=== PATIENT | male | born 1975 | race African-American/Black ===

== ENCOUNTER 2021-05-31 10:44 | Observation (INO) | payer OTHER ==
--- NOTE | 2021-05-31 10:45 | NUR ---
TO ROOM FOR TRIAGE BY EMS. [facility] STAFF AT BEDSIDE
[2021-05-31] MEDS ORDERED: KEPPRA1000 MG PO (11:06)
--- NOTE | 2021-05-31 11:42 | NUR ---
PATIENT RESTING, KEPPRA INFUSING TO LEFT AC WTHOUT DIFFICULTY. CONTINUING TO MONITOR.
[2021-05-31 11:52] LABS: HEMATOCRIT 41.7 % (39.0-50.0); HEMOGLOBIN 14.3 g/dl (14.0-18.0); IMMATURE GRANULOCYTES 0.1 % (0.0-5.0); MEAN CELL VOLUME 84.8 fL CALC (80.0-100.0); MEAN CORPUSCULAR HGB 29.1 pG CALC (26.0-32.0); MEAN CORPUSCULAR HGB CONC 34.3 g/dL CAL (32.0-36.0); NEUT# 6.21 thou/uL (1.82-7.42); RED BLOOD COUNT 4.92 mill/uL (4.70-6.10); RED CELL DISTRI WIDTH 12.7 % (11.5-15.5)
[2021-05-31 12:23] LABS: ALBUMIN 4.6 g/dL (3.2-5.0); ALKALINE PHOSPHATASE 47 u/l (38-126); ANION GAP 14 (6-22 (CALC)); BILIRUBIN, TOTAL 0.7 mg/dL (0.0-1.4); BUN 11 mg/dL (9-20); BUN/CREATININE RATIO 12 (12-20 (CALC)); CARBON DIOXIDE 25 mmol/l (22-30); CHLORIDE 105 mmol/l (95-108); ETHYL ALCOHOL 0 mg/dl (0-30); GFR > 60 ML/MIN (>=60 (CALC)); GFR FOR AFR.AMER. > 60 ML/MIN (>=60 (CALC)); POTASSIUM 3.7 mmol/l (3.5-5.1); SGOT/AST 43 u/l (17-59); SODIUM 140 mmol/l (137-146); TOTAL PROTEIN 7.9 g/dL (6.3-8.2)
--- NOTE | 2021-05-31 12:30 | NUR ---
PATIENT RESTING, NO DISTRESS. VSS.
--- NOTE | 2021-05-31 14:00 | NUR ---
AALIYAH ATTEMPT TO OBTAIN URINE SPECIMEN.
--- NOTE | 2021-05-31 16:00 | NUR ---
PATIENT RESTING, NO DISTRESS. CONTINUING TO MONITOR
--- NOTE | 2021-05-31 18:02 | NUR ---
URINAL PROVIDED AGAIN TO OBTAIN SPECIMEN.
--- NOTE | 2021-05-31 18:10 | NUR ---
DINNER TRAY PROVIDED FOR PATIENT AND GUARDS, ALL THANKFUL.
[2021-05-31 18:21] LABS: URINE BILIRUBIN - DIPSTICK NEGATIVE (NEGATIVE); URINE BLOOD DIPSTICK NEGATIVE (NEGATIVE); URINE COLOR YELLOW; URINE GLUCOSE - DIPSTICK NEGATIVE (NEGATIVE); URINE KETONE 15 mg/dL (NEGATIVE); URINE LEUK ESTERASE NEGATIVE (NEGATIVE); URINE PROTEIN - DIPSTICK NEGATIVE (NEG-TRACE); URINE SPECIFIC GRAVITY 1.025; URINE UROBILINOGEN - DIPSTICK 0.2 E.U./dL (0.2)
[2021-05-31 18:24] LABS: URINE NITRITE - DIPSTICK NEGATIVE (Negative)
--- NOTE | 2021-05-31 18:42 | NUR ---
O2 REMOVED BYPATIENT, VSS.
--- NOTE | 2021-05-31 20:06 | NUR ---
REPORT CALLED TO NURSE HAMEED
[2021-05-31 20:27] VITALS: BP 136/93
[2021-06-01 03:48] VITALS: BP 133/80
[2021-06-01 06:04] LABS: HEMATOCRIT 39.2 % (39.0-50.0); HEMOGLOBIN 13.3 g/dl (14.0-18.0); MEAN CELL VOLUME 84.5 fL CALC (80.0-100.0); MEAN CORPUSCULAR HGB 28.7 pG CALC (26.0-32.0); MEAN CORPUSCULAR HGB CONC 33.9 g/dL CAL (32.0-36.0); RED BLOOD COUNT 4.64 mill/uL (4.70-6.10); RED CELL DISTRI WIDTH 12.8 % (11.5-15.5)
[2021-06-01 06:27] LABS: ANION GAP 13 (6-22 (CALC)); BUN 9 mg/dL (9-20); BUN/CREATININE RATIO 11 (12-20 (CALC)); CARBON DIOXIDE 22 mmol/l (22-30); CHLORIDE 107 mmol/l (95-108); CREATININE 0.8 mg/dL (0.7-1.3); GFR > 60 ML/MIN (>=60 (CALC)); GFR FOR AFR.AMER. > 60 ML/MIN (>=60 (CALC)); MAGNESIUM 1.9 mg/dL (1.6-2.3); POTASSIUM 3.5 mmol/l (3.5-5.1); SODIUM 138 mmol/l (137-146)
[2021-06-01 07:55] VITALS: BP 130/80
--- NOTE | 2021-06-01 07:55 | NUR ---
PT ALERT AND ORIENTED. 2 GUARDS AT BEDSIDE. PT SHACKLED TO BED FRAME. VITALS AND ASSESSMENT DONE. S1 AND S2 HEARD UPON ASCULTATION. LUNG SOUNDS CLEAR. BOWELS ACTIVE IN ALL 4 QUADRANTS. SKIN WARM AND DRY. PEDAL PULSES BILATERALLY STRONG. IV PATENT AND HEALTHY. NO OTHER NEEDS AT THIS TIME. PT REPORTS NO PAIN AT THIS TIME. CALL LIGHT WITHIN REACH.
--- NOTE | 2021-06-01 11:32 | NUR ---
PT IN BED. GUARDS X2 AT BEDSIDE. CALL LIGHT WITHIN REACH.
--- NOTE | 2021-06-01 11:55 | NUR ---
Discharge instructions given. Patient verbalizes understanding of same. Dis[facility] in stable condition via [facility] with [facility]. All belongings sent with pt.
--- NOTE | 2021-06-01 11:55 | NUR ---
Discharge instructions given. Patient verbalizes understanding of same. Discharged in stable condition via [facility] to [facility] with staff. All belongings sent with pt.
== END 2021-06-01 12:00 | DRG 101 ==
LOC: ED 10:44 → ED-I 12:10 → ED 14:21 → MS2 14:22
PROVIDERS: Family Medicine; Nurse Practitioner; ADMIT Internal Medicine; ATTEND Internal Medicine
DX: G40.909 Epilepsy, unspecified, not intractable, without status epilepticus (principal); T42.6X6A Underdosing of other antiepileptic and sedative-hypnotic drugs, initial encounter; Z91.138 Patient's unintentional underdosing of medication regimen for other reason; B19.20 Unspecified viral hepatitis C without hepatic coma; Z20.822 Contact with and (suspected) exposure to COVID-19
CPT/HCPCS: G0378; J1650; J1953

== ENCOUNTER 2021-06-20 17:48 | Observation (INO) | payer OTHER ==
[~2021-06-20] VITALS: Ht 167.6 cm; Wt 67.0 kg
[~2021-06-20 17:48] MED LIST: KEPPRA1000 MG PO
--- NOTE | 2021-06-20 17:55 | NUR ---
PATIENT TO ROOM VIA EMS AND PHYSICIAN AT BEDSIDE FOR EVAL
[2021-06-20 18:27] LABS: HEMATOCRIT 40.1 % (39.0-50.0); HEMOGLOBIN 13.5 g/dl (14.0-18.0); MEAN CORPUSCULAR HGB 28.6 pG CALC (26.0-32.0); MEAN CORPUSCULAR HGB CONC 33.7 g/dL CAL (32.0-36.0); NEUT# 3.68 thou/uL (1.82-7.42); RED BLOOD COUNT 4.72 mill/uL (4.70-6.10); RED CELL DISTRI WIDTH 12.8 % (11.5-15.5)
--- NOTE | 2021-06-20 18:30 | NUR ---
STABLE ON MONITOR. OFFICERS AT BEDSIDE. HANDCUFFS IN PLACE.
[2021-06-20 18:39] LABS: ALBUMIN 4.8 g/dL (3.2-5.0); ALKALINE PHOSPHATASE 39 u/l (38-126); BUN 9 mg/dL (9-20); BUN/CREATININE RATIO 10 (12-20 (CALC)); CHLORIDE 104 mmol/l (95-108); CREATININE 0.9 mg/dL (0.7-1.3); ETHYL ALCOHOL 0 mg/dl (0-30); GFR > 60 ML/MIN (>=60 (CALC)); GFR FOR AFR.AMER. > 60 ML/MIN (>=60 (CALC)); SGOT/AST 22 u/l (17-59); SODIUM 140 mmol/l (137-146)
[2021-06-20 18:41] LABS: ANION GAP 11 (6-22 (CALC)); BILIRUBIN, TOTAL 0.3 mg/dL (0.0-1.4); CARBON DIOXIDE 29 mmol/l (22-30); POTASSIUM 4.3 mmol/l (3.5-5.1)
--- NOTE | 2021-06-20 20:00 | NUR ---
PT RETURNED FROM RADIOLOGY ACCOMPANED BY OFFICERS. SUCTION SET-UP TO BEDSIDE. PADDING PLACED ON SIDERAILS. NO SEIZURE-LIKE ACTIVITY NOTED. PT AWAKE AND ALERT
--- NOTE | 2021-06-20 20:30 | NUR ---
UNSUCCESSFUL ATTEMPTS AT IV START X2 TO RUE.
--- NOTE | 2021-06-20 22:00 | NUR ---
PT AND OFFICERS UPDATED ON PLAN FOR ADMISSION. SANDWICH, CRACKERS, AND WATER PROVIDED. ELECTRIC DOLLY OPERATOR NOTIFIED FOR HOT MEAL.
--- NOTE | 2021-06-21 01:00 | NUR ---
PT RESTING IN BED. OFFICERS AT BEDSIDE, CUFFS TO BLE AND RUE IN USE
--- NOTE | 2021-06-21 01:55 | NUR ---
REPORT GIVEN TO MARLA FARMER. PT STABLE FOR TRANSPORT TO FLOOR. ACCOMPANIED BY OFFICERS X2
[2021-06-21] MEDS ORDERED: DILANTIN100 MG PO (01:59)
--- NOTE | 2021-06-21 02:00 | NUR ---
Admission Note Report Given to: MARLA FARMER Transported by: Wheelchair X Stretcher Transported with: X Nurse Transporter X Patent IV O2 Acls Specialist Location: ICU X [facility]
[2021-06-21 02:18] VITALS: BP 131/82
--- NOTE | 2021-06-21 02:30 | NUR ---
PT ARRIVED TO UNIT ESCORTED BY ER STAFF AND 2 [facility] GUARDS VIA W/C. IV SITE TO RFA #22-NS @ 100ML/HR. I/O SITE TO LLE PLACED BY EMS. FLUIDS BEING GIVEN VIA THE RFA SITE. PT IS CUFFED TO BED BY SHACKLES TO LOWER EXTREMITIES AND LUE. CIRCULATION WNL IN LOWER AND UPPER EXTREMITIES. BREATHING IS EVEN AND UNLABORED. BED IS PADDED FOR SEIZURE SAFETY. SAFETY PRECAUTIONS IN PLACE, BED IN LOW POSITION AND CALL LIGHT WITHIN REACH. ADMISSION ASSESSMENTS COMPLETED, PLEASE SEE DOCUMENTATION. PT INDICATED HE DOES NOT NEED ASSISTANCE WITH ADL'S. GUARDS BEDSIDE TO ASSIST WITH REMOVAL OF CUFFS AND ESCORT TO THE TOILET. DENIES PAIN, NO COMPLAINTS VOICED AT THIS TIME. WILL CONTINUE TO MONITOR.
--- NOTE | 2021-06-21 04:03 | NUR ---
PT IN BED CONVERSING WITH GUARD, NO SEIZURE ACTIVITY NOTED. PT INDICATED HE DIDN'T GET HIS MEDS TONIGHT D/T HIM BEING LATE FOR MEDICATION LINE. WHEN PT ASKED IF THIS WAS OFTEN THAT HE MISSED HIS MEDS PT INDICATED IT USED TO BE VERY COMMON BUT OF LATE HE HAS BEEN COMPLIANT WITH HIS MEDICATIONS. NO COMPLAINTS VOICED AT THIS TIME. DENIES PAIN. SAFETY PRECAUTIONS REMAIN IN PLACE. WILL MONITOR
[2021-06-21 06:29] LABS: HEMATOCRIT 39.3 % (39.0-50.0); HEMOGLOBIN 13.2 g/dl (14.0-18.0); MEAN CELL VOLUME 86.6 fL CALC (80.0-100.0); MEAN CORPUSCULAR HGB 29.1 pG CALC (26.0-32.0); MEAN CORPUSCULAR HGB CONC 33.6 g/dL CAL (32.0-36.0); RED BLOOD COUNT 4.54 mill/uL (4.70-6.10)
[2021-06-21 07:00] LABS: ANION GAP 14 (6-22 (CALC)); BUN 12 mg/dL (9-20); BUN/CREATININE RATIO 14 (12-20 (CALC)); CARBON DIOXIDE 24 mmol/l (22-30); CHLORIDE 108 mmol/l (95-108); CREATININE 0.9 mg/dL (0.7-1.3); GFR > 60 ML/MIN (>=60 (CALC)); GFR FOR AFR.AMER. > 60 ML/MIN (>=60 (CALC)); SODIUM 142 mmol/l (137-146)
--- NOTE | 2021-06-21 07:20 | NUR ---
PT NOTED RESTING IN BED. ALERT AND ORIENTED X4. NO APPARENT DISTRESS NOTED. SEIZURE PRECAUTIONS IN PLACE. PT DENIES ANY PAIN OR DISCOMFORT. IV SITE APPEARS HEALTHY. IO LOCATED IN LLE, DRESSING CDI. DISCUSSED POC AND SAFETY PRECAUTIONS. PT VERBALIZED UNDERSTANDING. X2 GUARDS AT BEDSIDE. PT SHACKLED TO BED. CALL LIGHT WITHIN REACH. WILL CONTINUE TO MONITOR.
[2021-06-21 07:45] VITALS: BP 119/84
[2021-06-21] MEDS ORDERED: PEPCID20 MG PO (11:17)
--- NOTE | 2021-06-21 11:20 | NUR ---
PHYSICIAN AT BEDSIDE TO DISCUSS POC.
--- NOTE | 2021-06-21 13:31 | NUR ---
IO REMOVED FROM LLE WITH DEVICE INTACT. PT TOLERATED WELL. BIOPATACH, WITH PRESSURE DRESSING APPLIED. DISCHARGE INSTRUCTIONS REVIEWED. PT DENIES ANY QUESTIONS OR CONCERNS. X2 GUARDS REMAIN AT BEDSIDE. WILL NOTIFY WHEN RIDE ARRIVES FROM FACILITY.
--- NOTE | 2021-06-21 14:15 | NUR ---
IV site discontinued, cath intact. No edema , no redness, voices no discomfort.
--- NOTE | 2021-06-21 14:22 | NUR ---
Discharge instructions given. Patient verbalizes understanding of same. Discharged in stable condition via [facility] to [facility] with staff. All belongings sent with pt.
== END 2021-06-21 14:15 | DRG 101 ==
LOC: ED 17:48 → ED-I 21:05 → ED 21:17 → MS2 21:18
PROVIDERS: Family Medicine; ADMIT Hospitalist; ATTEND Hospitalist
DX: G40.409 Other generalized epilepsy and epileptic syndromes, not intractable, without status epilepticus (principal); B19.20 Unspecified viral hepatitis C without hepatic coma; F17.200 Nicotine dependence, unspecified, uncomplicated; T42.0X6A Underdosing of hydantoin derivatives, initial encounter; T42.6X6A Underdosing of other antiepileptic and sedative-hypnotic drugs, initial encounter; Z91.128 Patient's intentional underdosing of medication regimen for other reason; Z20.822 Contact with and (suspected) exposure to COVID-19
CPT/HCPCS: G0378; J1953

== ENCOUNTER 2021-06-27 09:07 | Emergency (ER) | payer OTHER ==
[~2021-06-27] VITALS: Ht 167.6 cm; Wt 70.4 kg
[~2021-06-27 09:07] MED LIST changes: +DILANTIN100 MG PO; +PEPCID20 MG PO
[2021-06-27 10:51] LABS: HEMATOCRIT 42.1 % (39.0-50.0); HEMOGLOBIN 13.8 g/dl (14.0-18.0); MEAN CELL VOLUME 87.3 fL CALC (80.0-100.0); MEAN CORPUSCULAR HGB 28.6 pG CALC (26.0-32.0); MEAN CORPUSCULAR HGB CONC 32.8 g/dL CAL (32.0-36.0); NEUT# 2.54 thou/uL (1.82-7.42); RED BLOOD COUNT 4.82 mill/uL (4.70-6.10)
[2021-06-27 11:30] LABS: ALBUMIN 4.7 g/dL (3.2-5.0); ALKALINE PHOSPHATASE 49 u/l (38-126); ANION GAP 17 (6-22 (CALC)); BILIRUBIN, TOTAL 0.3 mg/dL (0.0-1.4); BUN 13 mg/dL (9-20); BUN/CREATININE RATIO 16 (12-20 (CALC)); CARBON DIOXIDE 18 mmol/l (22-30); CHLORIDE 108 mmol/l (95-108); CREATININE 0.8 mg/dL (0.7-1.3); GFR > 60 ML/MIN (>=60 (CALC)); GFR FOR AFR.AMER. > 60 ML/MIN (>=60 (CALC)); MAGNESIUM 1.9 mg/dL (1.6-2.3); POTASSIUM 4.1 mmol/l (3.5-5.1); SGOT/AST 33 u/l (17-59); SODIUM 139 mmol/l (137-146); TOTAL PROTEIN 7.9 g/dL (6.3-8.2)
[2021-06-27] MEDS ORDERED: DILANTIN100 MG PO (13:48)
[2021-06-27 17:40] VITALS: BP 136/70
== END 2021-06-27 17:40 | disposition short-term general hospital (02) | DRG 100 ==
LOC: ED 09:07
PROVIDERS: Emergency Medicine
DX: G40.409 Other generalized epilepsy and epileptic syndromes, not intractable, without status epilepticus (principal); U07.1 COVID-19; B19.20 Unspecified viral hepatitis C without hepatic coma
CPT/HCPCS: J2060

== ENCOUNTER 2021-07-05 15:21 | Emergency (ER) | payer OTHER ==
[~2021-07-05] VITALS: Ht 167.6 cm; Wt 75.0 kg
[2021-07-05 17:04] LABS: HEMATOCRIT 39.5 % (39.0-50.0); HEMOGLOBIN 13.4 g/dl (14.0-18.0); IMMATURE GRANULOCYTES 0.1 % (0.0-5.0); MEAN CELL VOLUME 83.9 fL CALC (80.0-100.0); MEAN CORPUSCULAR HGB 28.5 pG CALC (26.0-32.0); MEAN CORPUSCULAR HGB CONC 33.9 g/dL CAL (32.0-36.0); NEUT# 5.81 thou/uL (1.82-7.42); RED BLOOD COUNT 4.71 mill/uL (4.70-6.10); RED CELL DISTRI WIDTH 12.6 % (11.5-15.5)
[2021-07-05 17:18] LABS: ALBUMIN 4.5 g/dL (3.2-5.0); ALKALINE PHOSPHATASE 42 u/l (38-126); BUN 11 mg/dL (9-20); BUN/CREATININE RATIO 15 (12-20 (CALC)); CARBON DIOXIDE 20 mmol/l (22-30); CHLORIDE 108 mmol/l (95-108); CPK 104 u/l (52-200); CREATININE 0.8 mg/dL (0.7-1.3); ETHYL ALCOHOL 0 mg/dl (0-30); GFR > 60 ML/MIN (>=60 (CALC)); GFR FOR AFR.AMER. > 60 ML/MIN (>=60 (CALC)); SGOT/AST 28 u/l (17-59); SODIUM 138 mmol/l (137-146); TOTAL PROTEIN 7.6 g/dL (6.3-8.2)
[2021-07-05 17:20] LABS: ANION GAP 15 (6-22 (CALC)); BILIRUBIN, TOTAL 0.5 mg/dL (0.0-1.4)
[2021-07-05] MEDS ORDERED: WALKER/ADULT/FOLDING TOP (18:22)
[2021-07-05 21:47] VITALS: BP 118/86
== END 2021-07-05 22:15 | disposition short-term general hospital (02) | DRG 101 ==
LOC: ED 15:21
PROVIDERS: Family Medicine
PROC: 0BH17EZ Insertion of Endotracheal Airway into Trachea, Via Natural or Artificial Opening (ICD-10-PCS; principal; 2021-07-05)
PROC: 05HM33Z Insertion of Infusion Device into Right Internal Jugular Vein, Percutaneous Approach (ICD-10-PCS; 2021-07-05)
PROC: B543ZZA Ultrasonography of Right Jugular Veins, Guidance (ICD-10-PCS; 2021-07-05)
DX: G40.409 Other generalized epilepsy and epileptic syndromes, not intractable, without status epilepticus (principal); B19.20 Unspecified viral hepatitis C without hepatic coma; Z20.822 Contact with and (suspected) exposure to COVID-19
CPT/HCPCS: J1953; J2060

== ENCOUNTER 2021-07-18 12:47 | Emergency (ER) | payer OTHER ==
[~2021-07-18] VITALS: Ht 167.6 cm; Wt 63.0 kg
[~2021-07-18 12:47] MED LIST changes: +WALKER/ADULT/FOLDING TOP
[2021-07-18 14:13] LABS: HEMATOCRIT 37.8 % (39.0-50.0); HEMOGLOBIN 12.7 g/dl (14.0-18.0); MEAN CELL VOLUME 84.8 fL CALC (80.0-100.0); MEAN CORPUSCULAR HGB 28.5 pG CALC (26.0-32.0); MEAN CORPUSCULAR HGB CONC 33.6 g/dL CAL (32.0-36.0); NEUT# 4.7 thou/uL (1.82-7.42); RED BLOOD COUNT 4.46 mill/uL (4.70-6.10); RED CELL DISTRI WIDTH 12.7 % (11.5-15.5)
[2021-07-18 14:36] LABS: ALBUMIN 4.6 g/dL (3.2-5.0); ALKALINE PHOSPHATASE 46 u/l (38-126); ANION GAP 10 (6-22 (CALC)); BILIRUBIN, TOTAL 0.3 mg/dL (0.0-1.4); BUN 12 mg/dL (9-20); BUN/CREATININE RATIO 16 (12-20 (CALC)); CARBON DIOXIDE 27 mmol/l (22-30); CHLORIDE 105 mmol/l (95-108); CREATININE 0.8 mg/dL (0.7-1.3); GFR > 60 ML/MIN (>=60 (CALC)); GFR FOR AFR.AMER. > 60 ML/MIN (>=60 (CALC)); MAGNESIUM 1.9 mg/dL (1.6-2.3); PHENYTOIN (DILANTIN) 14 ug/mL (10 - 20); POTASSIUM 3.9 mmol/l (3.5-5.1); SGOT/AST 26 u/l (17-59); SODIUM 138 mmol/l (137-146); TOTAL PROTEIN 8.2 g/dL (6.3-8.2)
[2021-07-18 14:53] LABS: URINE BILIRUBIN - DIPSTICK NEGATIVE (NEGATIVE); URINE BLOOD DIPSTICK NEGATIVE (NEGATIVE); URINE COLOR YELLOW; URINE GLUCOSE - DIPSTICK NEGATIVE (NEGATIVE); URINE KETONE NEGATIVE (NEGATIVE); URINE LEUK ESTERASE NEGATIVE (NEGATIVE); URINE PROTEIN - DIPSTICK NEGATIVE (NEG-TRACE); URINE UROBILINOGEN - DIPSTICK 0.2 E.U./dL (0.2)
[2021-07-18 14:55] LABS: URINE NITRITE - DIPSTICK NEGATIVE (Negative)
[2021-07-18 18:18] VITALS: BP 105/63
--- NOTE | 2021-07-18 20:08 | NUR ---
PT MEDICATED ORDERS PROVIDE. GUARDS AT BEDSIDE X3
== END 2021-07-18 18:53 | DRG 101 ==
LOC: ED 12:47
PROVIDERS: Emergency Medicine
DX: G40.909 Epilepsy, unspecified, not intractable, without status epilepticus (principal); B19.20 Unspecified viral hepatitis C without hepatic coma

== ENCOUNTER 2021-07-24 19:05 | Emergency (ER) | payer OTHER ==
[~2021-07-24] VITALS: Ht 167.6 cm; Wt 73.0 kg
[2021-07-24 21:01] LABS: HEMATOCRIT 41.4 % (39.0-50.0); HEMOGLOBIN 13.8 g/dl (14.0-18.0); IMMATURE GRANULOCYTES 0.1 % (0.0-5.0); MEAN CELL VOLUME 85.7 fL CALC (80.0-100.0); MEAN CORPUSCULAR HGB 28.6 pG CALC (26.0-32.0); MEAN CORPUSCULAR HGB CONC 33.3 g/dL CAL (32.0-36.0); NEUT# 4.83 thou/uL (1.82-7.42); RED BLOOD COUNT 4.83 mill/uL (4.70-6.10); RED CELL DISTRI WIDTH 13.1 % (11.5-15.5)
[2021-07-24 21:02] LABS: URINE BILIRUBIN - DIPSTICK NEGATIVE (NEGATIVE); URINE BLOOD DIPSTICK NEGATIVE (NEGATIVE); URINE COLOR YELLOW; URINE GLUCOSE - DIPSTICK NEGATIVE (NEGATIVE); URINE KETONE NEGATIVE (NEGATIVE); URINE LEUK ESTERASE NEGATIVE (NEGATIVE); URINE PH 6.5 (4.5-8.0); URINE PROTEIN - DIPSTICK NEGATIVE (NEG-TRACE); URINE UROBILINOGEN - DIPSTICK 0.2 E.U./dL (0.2)
[2021-07-24 21:04] LABS: URINE NITRITE - DIPSTICK NEGATIVE (Negative)
[2021-07-24 21:21] LABS: ALBUMIN 4.5 g/dL (3.2-5.0); ALKALINE PHOSPHATASE 50 u/l (38-126); ANION GAP 14 (6-22 (CALC)); BILIRUBIN, TOTAL 0.3 mg/dL (0.0-1.4); BUN 15 mg/dL (9-20); BUN/CREATININE RATIO 17 (12-20 (CALC)); CARBON DIOXIDE 24 mmol/l (22-30); CHLORIDE 105 mmol/l (95-108); CREATININE 0.9 mg/dL (0.7-1.3); GFR > 60 ML/MIN (>=60 (CALC)); GFR FOR AFR.AMER. > 60 ML/MIN (>=60 (CALC)); MAGNESIUM 1.9 mg/dL (1.6-2.3); POTASSIUM 4.5 mmol/l (3.5-5.1); SGOT/AST 26 u/l (17-59); SODIUM 139 mmol/l (137-146)
[2021-07-24 21:25] LABS: PHENYTOIN (DILANTIN) 21 ug/mL (10 - 20)
[2021-07-25 00:47] VITALS: BP 105/68
== END 2021-07-25 01:10 | disposition short-term general hospital (02) | DRG 101 ==
LOC: ED 19:05
PROVIDERS: Emergency Medicine
DX: G40.401 Other generalized epilepsy and epileptic syndromes, not intractable, with status epilepticus (principal); B19.20 Unspecified viral hepatitis C without hepatic coma; Z20.822 Contact with and (suspected) exposure to COVID-19